=== PATIENT | male | born 1990 | race Caucasian/White ===

== ENCOUNTER 2017-10-19 10:44 | Emergency (ER) | payer BC ==
[~2017-10-19] VITALS: Ht 188 cm; Wt 84.0 kg
[2017-10-19 16:16] VITALS: BP 114/78
== END 2017-10-19 16:19 | disposition home or self-care (01) ==
LOC: ER 11:20
DX: T42.4X1A Poisoning by benzodiazepines, accidental (unintentional), initial encounter (principal); F10.129 Alcohol abuse with intoxication, unspecified; F12.10 Cannabis abuse, uncomplicated; Y92.89 Other specified places as the place of occurrence of the external cause
CPT/HCPCS: 99283; Z7610